=== PATIENT | male | born 1985 | race Two or more races ===

== ENCOUNTER 2023-06-05 03:58 | Emergency (ER) | payer OTHER ==
[~2023-06-05] VITALS: Ht 177.8 cm; Wt 98.4 kg
[2023-06-05] MEDS ORDERED: KETO10TA2 PO (06:10)
== END 2023-06-05 06:15 ==
LOC: ER 03:59
DX: S96.812A Strain of other specified muscles and tendons at ankle and foot level, left foot, initial encounter (principal); X58.XXXA Exposure to other specified factors, initial encounter; Y93.89 Activity, other specified; Y92.89 Other specified places as the place of occurrence of the external cause; Y99.8 Other external cause status